=== PATIENT | male | born 1940 | race Caucasian/White ===

== ENCOUNTER → 2024-03-28 07:17 | Outpatient (REF) | payer MEDICARE, SELFPAY ==
[2024-03-28 11:09] LABS: ALT (SGPT) 20 U/L (0-50); AST (SGOT) 23 U/L (17-59); Albumin 4.2 g/dl (3.5-5.0); Alkaline Phosphatase 87 U/L (38-126); Blood Urea Nitrogen 28 mg/dl (9-20); Calcium 9.6 mg/dl (8.4-10.2); Carbon Dioxide 24 mmol/L (22-30); Chloride 105 mmol/L (98-107); Glucose 122 mg/dl (70-99); HDL Cholesterol 47 mg/dl; LDL Cholesterol, Calculated 91 mg/dl; Potassium 4.8 mmol/L (3.5-5.1); Sodium 138 mmol/L (135-145); Total Bilirubin 0.6 mg/dl (0.2-1.3); Total Cholesterol 165 mg/dl (50-199); Total Protein 6.6 g/dl (6.3-8.2); Triglyceride 135 mg/dl (10-149); Very Low Density Lipoprotein 27 mg/dl (0-30); eGFR 46.48
== END ==
LOC: REG 07:17
PROVIDERS: ATTENDING PHYSICIAN Internal Medicine Cardiovascular Disease; FAMILY PHYSICIAN Internal Medicine
DX: E78.5 Hyperlipidemia, unspecified (principal)
CPT/HCPCS: 36415; 80053; 80061

== ENCOUNTER → 2024-08-01 09:53 | Outpatient (REF) | payer MEDICARE, SELFPAY ==
[2024-08-01 11:17] LABS: % Basophils 0.3 % (0-2); % Eosinophils 4.4 % (0-6); % Immature Granulocytes 0.3 % (0-0.5); % Lymphocytes 22.7 % (20.5-51.1); % Monocytes 9.2 % (1.7-9.3); % Neutrophils 63.1 % (42.2-75.2); Absolute Eosinophils 0.4 10^3/uL (0-0.7); Absolute Lymphocytes 2.2 10^3/uL (1.2-3.4); Absolute Monocytes 0.9 10^3/uL (0.1-0.6); Absolute Neutrophils 6.1 10^3/uL (1.4-6.5); Hematocrit 44.6 % (39.0-52.0); Hemoglobin 15.3 g/dL (13.0-18.0); Mean Corp Hgb Conc. 34.3 g/dL (33.0-37.0); Mean Corpuscular Hgb 32.6 pg (27.0-31.0); Mean Corpuscular Volume 94.9 fL (80.0-94.0); Mean Platelet Volume 10.5 fL (7.4-10.4); Nucleated Red Blood Cells % 0 % (-); Platelet Count 199 10^3/uL (130-400); Red Cell Dist. Width 13.3 % (11.5-14.5); White Blood Cell Count 9.7 10^3/uL (4.8-10.8)
== END ==
LOC: REG 09:53
PROVIDERS: ATTENDING PHYSICIAN Nurse Practitioner Family; FAMILY PHYSICIAN Internal Medicine
DX: Z01.818 Encounter for other preprocedural examination (principal)
CPT/HCPCS: 36415; 85025

== ENCOUNTER → 2025-02-05 06:32 | Outpatient (REF) | payer MEDICARE, SELFPAY | LOC: RAD 06:32 | PROVIDERS: ATTENDING PHYSICIAN Student in an Organized Health Care Education/Training Program; FAMILY PHYSICIAN Internal Medicine | DX: I73.9 Peripheral vascular disease, unspecified (principal) | CPT/HCPCS: 93922; 93925 ==

== ENCOUNTER → 2025-03-20 07:33 | Outpatient (REF) | payer MEDICARE, SELFPAY | LOC: HWRCS 07:33 | PROVIDERS: ATTENDING PHYSICIAN Student in an Organized Health Care Education/Training Program; FAMILY PHYSICIAN Internal Medicine | DX: R06.02 Shortness of breath (principal) | CPT/HCPCS: 93306 ==

== ENCOUNTER → 2025-03-22 06:40 | Outpatient (REF) | payer MEDICARE, SELFPAY | LOC: RCS 06:40 | PROVIDERS: ATTENDING PHYSICIAN Student in an Organized Health Care Education/Training Program; FAMILY PHYSICIAN Internal Medicine | DX: R06.02 Shortness of breath (principal) | CPT/HCPCS: 78452; 93017; A9500 ==

== ENCOUNTER → 2025-04-11 07:22 | Outpatient (REF) | payer MEDICARE, SELFPAY ==
[2025-04-11 09:10] LABS: ALT (SGPT) 22 U/L (0-50); AST (SGOT) 23 U/L (17-59); Albumin 4.5 g/dl (3.5-5.0); Alkaline Phosphatase 76 U/L (38-126); Blood Urea Nitrogen 38 mg/dl (9-20); Calcium 9.8 mg/dl (8.4-10.2); Carbon Dioxide 27 mmol/L (22-30); Chloride 105 mmol/L (98-107); Glucose 111 mg/dl (70-99); HDL Cholesterol 45 mg/dl; LDL Cholesterol, Calculated 56 mg/dl; Potassium 4.9 mmol/L (3.5-5.1); Sodium 140 mmol/L (135-145); Total Protein 7.1 g/dl (6.3-8.2); Very Low Density Lipoprotein 25 mg/dl (0-30); eGFR 42.75
== END ==
LOC: REG 07:22
PROVIDERS: ATTENDING PHYSICIAN Student in an Organized Health Care Education/Training Program; FAMILY PHYSICIAN Internal Medicine
DX: I25.810 Atherosclerosis of coronary artery bypass graft(s) without angina pectoris (principal)
CPT/HCPCS: 36415; 80053; 80061

== ENCOUNTER 2025-04-22 13:08 | Emergency (ER) | payer MEDICARE, SELFPAY ==
[2025-04-22 13:15] VITALS: BP 134/61
[2025-04-22 13:17] VITALS: BP 134/61
--- NOTE | 2025-04-22 13:59 | ED.GENMED ---
History of Present Illness
General
Chief Complaint: Back Pain
Source: patient
Exam Limitations: none
Time Seen by Provider: 04/22/25 13:46
History of Present Illness
History of Present Illness:
84-year-old male presents complaining of right back pain that radiates to the groin since about 5 days ago. He thinks he may have twisted his back golfing. He was seen by his family doctor and prescribed muscle relaxer and steroid without any
significant relief. No urinary symptoms. He denies nausea. No prior history of kidney stones. He denies bowel or bladder dysfunction or perianal anesthesia.
Phy Exam
Physical Exam
Physical Exam:
General: Well-appearing male nontoxic no acute distress
HEENT: Normocephalic atraumatic
Heart: Regular rate and rhythm
Musculoskeletal exam: Patient is tender over the right costovertebral angle and to the right lumbosacral junction
Extremities: No cyanosis
Skin is warm no
Course
Orders/Labs/Results
Orders:
Orders
04/22/25 13:58
CT Abd/pel Without Iv Or Oral Urgent
Comment:
Reason For Exam: right flankl and back pain
04/22/25 14:12
Urinalysis Reflex To Culture Urgent
Date Specimen was Collected: 04/22/25
Time Specimen was Collected: 14:06
Urine Microscopic Reflex Cult Urgent
Abnormal Lab Results
04/22/25
14:12
Urine Bacteria (Reflex) Few A
(Negative)
Urine Albumin (Reflex) 1+ A
(Neg - Trace)
Vital Signs
Initial and Last Documented VS:
Initial Vital Signs
Temp Pulse Resp BP Pulse Ox
97.7 F 91 16 134/61 98
04/22/25 13:15 04/22/25 13:15 04/22/25 13:15 04/22/25 13:15 04/22/25 13:15
Last Documented Vital Signs
Temp Pulse Resp BP Pulse Ox
97.7 F 91 16 134/61 98
04/22/25 13:15 04/22/25 13:15 04/22/25 13:15 04/22/25 13:17 04/22/25 14:01
MDM/Problems Addressed
Differential Diagnosis Includes:
Right back pain. Consider degenerative disc disease versus lumbar strain versus renal colic
CT pending
*Pulse Oximetry
SaO2: 98
Oxygen Mode of Delivery: Room air
Patient hypoxic: no
*Critical Care Note
Total Time (30-74mins, 75-104mins- exclusive of procedures): Not Applicable
Update Note
Update Note:
CT of the abdomen pelvis shows no acute intra-abdominal pathology but there is moderate degenerative changes throughout the lumbar spine. I suspect lower back pain radiating to the front is radicular knowing that there is no kidney stone or other
intra-abdominal process. Recommended gabapentin. Referred to Dr. Ortiz. Stable for discharge
ED Attending Note
-
Portions of this chart may have been created with voice recognition software.� Occasional wrong word or��sound alike� substitutions may have occurred due to the inherent limitations of voice recognition software.
Discharge Plan
Departure
Patient Disposition: Home (Routine Discharge)
Date of Disposition: 04/22/25
Time of Disposition: 16:42
Patient with high blood pressure during this ER visit?: No
Discharge Problem:
Back pain
Instructions: Radiculopathy (DC)
Prescriptions:
New
gabapentin 300 mg capsule
300 mg PO TID Qty: 20 0RF
No Action
cyanocobalamin (vitamin B-12) 1,000 MCG tablet
5,000 mcg PO DAILY
allopurinol 100 MG tablet
100 mg PO DAILY
tamsulosin 0.4 MG capsule
0.4 mg PO DAILY
cholecalciferol (vitamin D3) [Vitamin D3] 400 UNITS tablet
2,000 units PO DAILY
coenzyme Q10 50 MG tablet,chewable
400 mg PO DAILY
telmisartan 40 mg Tablet
40 mg PO QPM
finasteride 5 mg Tablet
5 mg PO DAILY
rosuvastatin 40 mg Tablet
40 mg PO QPM
vitamin E
1 tab PO DAILY
sulfamethoxazole-trimethoprim [Bactrim DS] 800-160 mg tablet
1 tab PO BID Qty: 10 0RF
Rx Instructions:
pt has rx at home
Referrals:
Adan Ortiz MD [Active, Anesthesiology]
Kel Dahl DO [Family Provider, Internal Medicine]
Activity Restrictions/Additional Instructions:
Use warm compresses to the back. Consider Lidoderm patches for additional relief. Add gabapentin. Follow-up with Dr. Ortiz. Return if worse otherwise
Interventions
Interventions:
*Risk Screen - Suicide Last Done: 04/22/25 13:17
*General Assessment Last Done: 04/22/25 15:30
*Neglect/Abuse Screening Last Done: 04/22/25 13:15
*ED- Fall Risk Assessment Last Done: 04/22/25 15:30
ED-Musculoskeletal Assessment Last Done: 04/22/25 13:38
Discharge Date and Time
Print Language: YAKUT
[2025-04-22 15:12] LABS: Urine Character Clear (Clear)
[2025-04-22 15:31] LABS: Urine Squamous Cell >30 /LPF (Few)
[2025-04-22 15:32] LABS: Urine Red Blood Cell 0-2 /HPF (0-2); Urine White Cell 0-2 /HPF (0-5)
== END 2025-04-22 16:47 | disposition home or self-care (01) ==
LOC: EMR 13:08
PROVIDERS: Physician Assistant; EMERGENCY PHYSICIAN Emergency Medicine; FAMILY PHYSICIAN Internal Medicine; REFERRING PHYSICIAN Student in an Organized Health Care Education/Training Program
DX: M54.50 Low back pain, unspecified (principal); M47.816 Spondylosis without myelopathy or radiculopathy, lumbar region
CPT/HCPCS: 99284; 74176; 81003; 81015

== ENCOUNTER → 2025-05-16 15:29 | Outpatient (REF) | payer MEDICARE, SELFPAY | LOC: MRI 3T 15:29 | PROVIDERS: ATTENDING PHYSICIAN Psychiatry & Neurology Neurology; FAMILY PHYSICIAN Internal Medicine | DX: M54.16 Radiculopathy, lumbar region (principal) | CPT/HCPCS: 72148 ==

== ENCOUNTER 2025-06-07 15:15 | Emergency (ER) | payer MEDICARE, SELFPAY ==
[2025-06-07 15:16] VITALS: BP 153/80
[2025-06-07 15:50] LABS: Hematocrit 41.4 % (39.0-52.0); Hemoglobin 15.0 g/dL (13.0-18.0); Mean Corp Hgb Conc. 36.2 g/dL (33.0-37.0); Mean Corpuscular Volume 91.4 fL (80.0-94.0); Nucleated Red Blood Cells % 0 % (-); Platelet Count 148 10^3/uL (130-400); Red Cell Dist. Width 13.2 % (11.5-14.5)
[2025-06-07 15:59] LABS: ALT (SGPT) 37 U/L (0-50); AST (SGOT) 38 U/L (17-59); Albumin 4.0 g/dl (3.5-5.0); Alkaline Phosphatase 73 U/L (38-126); Blood Urea Nitrogen 28 mg/dl (9-20); Calcium 8.7 mg/dl (8.4-10.2); Carbon Dioxide 19 mmol/L (22-30); Chloride 101 mmol/L (98-107); Glucose 195 mg/dl (70-99); Potassium 4.6 mmol/L (3.5-5.1); Sodium 128 mmol/L (135-145); Total Protein 7.0 g/dl (6.3-8.2); eGFR 42.75
[2025-06-07 16:16] LABS: COVID-19 Antigen Negative (Negative)
--- NOTE | 2025-06-07 17:29 | ED.GENMED ---
History of Present Illness
General
Chief Complaint: Weakness
Source: patient
Exam Limitations: none
Time Seen by Provider: 06/07/25 17:21
History of Present Illness
History of Present Illness:
84-year-old male presents with fatigue and lightheadedness. He recently returned from [facility]. He notes some shortness of breath. His is sick with similar symptoms. Patient notes fatigue myalgias and fever recently. No leg swelling. No
history of CHF. They did a home COVID test which was negative. He has been no vomiting. No other complaints
Phy Exam
Physical Exam
Physical Exam:
General: Well-appearing male no acute respiratory distress
HEENT normal cephalic atraumatic
Heart: Regular rate and rhythm
Lungs: Clear no wheeze
Abdomen is soft nontender
Extremities: No cyanosis or edema
Course
Orders/Labs/Results
Orders:
Orders
06/07/25 15:29
COVID-19 Antigen Urgent
Source: Nasal Swab
Complete Blood Count/With Diff Urgent
Comprehensive Metabolic Panel Urgent
Influenza A+B Rapid Molecular Urgent
MAREN Source: Nasal Swab
Specimen Description:
06/07/25 17:28
Electrocardiogram (*1) Urgent
Reason for Study: Shortness of Breath
CT Chest PE Study Urgent
Comment:
Reason For Exam: sob, fatigue, recent flight
EKG- Treatment ONCE
0.9% Sodium Chloride 1000 ml [Nss] 1,000 ml IV BOLUS
06/07/25 17:55
Troponin I Urgent
06/07/25 18:35
Urinalysis Reflex To Culture Urgent
Date Specimen was Collected: 06/07/25
Time Specimen was Collected: 18:03
Urine Microscopic Reflex Cult Urgent
06/07/25 20:45
Amoxicillin 875 mg/Clav 125 mg [Augmentin 875 mg/125 mg] 1 tablet PO NOW STA
Azithromycin [Zithromax] 500 mg PO NOW STA
Abnormal Lab Results
06/07/25 06/07/25
15:29 18:35
RBC 4.53 L 10^6/uL
(4.70-6.10)
MCH 33.1 H pg
(27.0-31.0)
MPV 11.0 H fL
(7.4-10.4)
Absolute Lymphs (auto) 1.1 L 10^3/uL
(1.2-3.4)
Absolute Monos (auto) 0.8 H 10^3/uL
(0.1-0.6)
Lymphocytes % 14.1 L %
(20.5-51.1)
Monocytes % 10.5 H %
(1.7-9.3)
Sodium 128 L mmol/L
(135-145)
Carbon Dioxide 19 L mmol/L
(22-30)
BUN 28 H mg/dl
(9-20)
Creatinine 1.6 H mg/dL
(0.7-1.3)
Glucose 195 H mg/dl
(70-99)
Total Bilirubin 1.4 H mg/dl
(0.2-1.3)
Ur Occult Blood Reflex 1+ A
(Negative)
Urine Albumin (Reflex) 2+ A
(Neg - Trace)
06/07/25 15:29
06/07/25 15:29
Vital Signs
Initial and Last Documented VS:
Initial Vital Signs
Temp Pulse Resp BP Pulse Ox
97.6 F 93 18 153/80 98
06/07/25 15:16 06/07/25 15:16 06/07/25 15:16 06/07/25 15:16 06/07/25 15:16
Last Documented Vital Signs
Temp Pulse Resp BP Pulse Ox
97.6 F 84 25 141/72 97
06/07/25 15:16 06/07/25 19:15 06/07/25 19:15 06/07/25 18:37 06/07/25 19:15
MDM/Problems Addressed
Differential Diagnosis Includes:
Patient with fatigue myalgias fever lightheadedness over the past several days with recent flight to [place]. COVID and flu test were negative. Considered volume depletion and dehydration. Sodium is 128. Creatinine is stable at 1.6. Given
lightheadedness and shortness of breath in the setting of a recent extended flight, will consider PE. Chest CT scan ordered. Fluids ordered.
*Pulse Oximetry
SaO2: 98
Oxygen Mode of Delivery: Room air
Patient hypoxic: no
*Critical Care Note
Total Time (30-74mins, 75-104mins- exclusive of procedures): Not Applicable
Update Note
Update Note:
CT negative for PE but does demonstrate mild pneumonitis at the base of the left lung. Given patient's clinical presentation of cough myalgias fatigue chills subjective fever we will treat this for community-acquired pneumonia. He is not hypoxic
labs look well otherwise he has been on his feet after fluids looks and feels much better. At this point no indication for admission but will cover with Augmentin and Zithromax. Return precautions were given advise follow-up with family doctor
next week
ED Attending Note
-
Portions of this chart may have been created with voice recognition software.� Occasional wrong word or��sound alike� substitutions may have occurred due to the inherent limitations of voice recognition software.
Discharge Plan
Departure
Patient Disposition: Home (Routine Discharge)
Date of Disposition: 06/07/25
Time of Disposition: 20:46
Patient with high blood pressure during this ER visit?: No
Discharge Problem:
Pneumonia
Instructions: Pneumonia
Prescriptions:
New
amoxicillin-pot clavulanate 875-125 mg tablet
1 tab PO BID Qty: 14 0RF
azithromycin [Zithromax Z-[place]] 250 mg tablet
250 mg PO DAILY Qty: 4 0RF
No Action
cyanocobalamin (vitamin B-12) 1,000 MCG tablet
5,000 mcg PO DAILY
allopurinol 100 MG tablet
100 mg PO DAILY
tamsulosin 0.4 MG capsule
0.4 mg PO DAILY
cholecalciferol (vitamin D3) [Vitamin D3] 400 UNITS tablet
2,000 units PO DAILY
coenzyme Q10 50 MG tablet,chewable
400 mg PO DAILY
telmisartan 40 mg Tablet
40 mg PO QPM
finasteride 5 mg Tablet
5 mg PO DAILY
rosuvastatin 40 mg Tablet
40 mg PO QPM
vitamin E
1 tab PO DAILY
sulfamethoxazole-trimethoprim [Bactrim DS] 800-160 mg tablet
1 tab PO BID Qty: 10 0RF
Rx Instructions:
pt has rx at home
gabapentin 300 mg capsule
300 mg PO TID Qty: 20 0RF
Referrals:
Kel Dahl DO [Family Provider, Internal Medicine]
Activity Restrictions/Additional Instructions:
Take antibiotics as directed. Stay hydrated. You may use Tylenol if needed for fever. Return here for persistent fever shortness of breath vomiting or other concerning findings otherwise follow-up with your doctor
Interventions
Interventions:
*Risk Screen - Suicide Last Done: 06/07/25 15:18
*General Assessment Last Done: 06/07/25 15:18
*Neglect/Abuse Screening Last Done: 06/07/25 15:18
*ED COVID-19 Vaccine History Last Done: 06/07/25 15:18
*ED Influenza Vaccine History Last Done: 06/07/25 15:18
ED- Cardiac Assessment Last Done: 06/07/25 17:47
ED- Neurological Assessment Last Done: 06/07/25 17:47
ED- Pulmonary Assessment Last Done: 10/17/25 17:47
Discharge Date and Time
Print Language: ROMANSH
[2025-06-07] MEDS: NSS 1000 IV (17:42)
[2025-06-07 17:47] VITALS: BMI 30.3
[2025-06-07 18:33] LABS: Troponin I 0.027 ng/ml
[2025-06-07 18:37] VITALS: BP 141/72
[2025-06-07 18:55] LABS: Urine Character Slightly Cloudy (Clear)
[2025-06-07 19:38] LABS: Urine Red Blood Cell 0-2 /HPF (0-2); Urine White Cell 0-2 /HPF (0-5)
[2025-06-07] MEDS: AUGMENTIN 875 MG/125 MG 1 TABLET PO (20:53)
[2025-06-07] MEDS: ZITHROMAX 500 MG PO (20:53)
[2025-06-07 21:06] VITALS: BP 145/89
== END 2025-06-07 21:08 | disposition home or self-care (01) ==
LOC: EMR 15:15
PROVIDERS: Physician Assistant; EMERGENCY PHYSICIAN Emergency Medicine; FAMILY PHYSICIAN Internal Medicine
DX: J18.9 Pneumonia, unspecified organism (principal)
CPT/HCPCS: 99284; 96360; 71275; 80053; 81003; 81015; 84484; 85025; 87502; 87811; 93005; 96374; Q9967

== ENCOUNTER 2025-08-19 10:40 | Emergency (ER) | payer MEDICARE, SELFPAY ==
[2025-08-19 10:44] VITALS: BP 149/81
--- NOTE | 2025-08-19 11:28 | ED.GENMED ---
History of Present Illness
<Damian Owen MD, Resident - Last Filed: 08/19/25 14:06>
General
Chief Complaint: Cough
Time Seen by Provider: 08/19/25 11:08
History of Present Illness
History of Present Illness:
84 yo M PMH CABG, HTN, HLD, CAD, bladder cancer p/w cough and congestion for 1 week duration. He is presenting because symptoms have not improved and he has upcoming travel to [place].
He endorses chest pain only during cough. he endorses rhinorrhea. clear sputum. denies dyspnea. denies myalgia.
He had a recent surgery (bone removal for managing sciatica pain) on 08/08 and reports that the symptoms began after the procedure.
he reports that robutussin has helped managing the symptoms.
he notes no history of heart failure
nkda
social hx unremarkable
Past History
<Damian Owen MD, Resident - Last Filed: 08/19/25 14:06>
Social History
Tobacco: Non-smoker
Alcohol: Occasional
Drug: None
Review of Systems
<Damian Owen MD, Resident - Last Filed: 08/19/25 14:06>
Review of Systems
Constitutional: Reports fever and chills
EENT: Reports runny nose
Respiratory: Reports cough
Cardiac: Reports no symptoms
ABD/GI: Reports no symptoms
: Reports no symptoms
Musculoskeletal: Reports no symptoms
Neurological: Reports headache (frontal sinuses area)
Phy Exam
<Damian Owen MD, Resident - Last Filed: 08/19/25 14:06>
Physical Exam
Physical Exam:
VS: 149/81; HR 90
General: no acute distress
CV: no murmurs on my exam
Pulm: decreased breath sounds on left side
GI: + bowel sounds, no tenderness to palpation
MSK: no lower extremity edema
Course
<Damian Owen MD, Resident - Last Filed: 08/19/25 14:06>
Orders/Labs/Results
Orders:
Orders
08/19/25 10:47
Electrocardiogram (*1) Urgent
Reason for Study: Chest Pain
EKG- Treatment ONCE
08/19/25 12:02
CR Chest - 2 Views Urgent
Comment:
Reason For Exam: cough
08/19/25 13:09
Amoxicillin 875 mg/Clav 125 mg [Augmentin 875 mg/125 mg] 1 tablet PO NOW STA
Azithromycin [Zithromax] 500 mg PO NOW STA
Vital Signs
Initial and Last Documented VS:
Initial Vital Signs
Temp Pulse Resp BP Pulse Ox
97.8 F 90 20 149/81 98
08/19/25 10:44 08/19/25 10:44 08/19/25 10:44 08/19/25 10:44 08/19/25 10:44
Last Documented Vital Signs
Temp Pulse Resp BP Pulse Ox
97.8 F 90 20 149/81 98
08/19/25 10:44 08/19/25 10:44 08/19/25 10:44 08/19/25 10:44 08/19/25 11:30
<Lon Light, DO - Last Filed: 08/19/25 13:19>
Orders/Labs/Results
Orders:
Orders
08/19/25 10:47
Electrocardiogram (*1) Urgent
Reason for Study: Chest Pain
EKG- Treatment ONCE
08/19/25 12:02
CR Chest - 2 Views Urgent
Comment:
Reason For Exam: cough
08/19/25 13:09
Amoxicillin 875 mg/Clav 125 mg [Augmentin 875 mg/125 mg] 1 tablet PO NOW STA
Azithromycin [Zithromax] 500 mg PO NOW STA
Vital Signs
Initial and Last Documented VS:
Initial Vital Signs
Temp Pulse Resp BP Pulse Ox
97.8 F 90 20 149/81 98
08/19/25 10:44 08/19/25 10:44 08/19/25 10:44 08/19/25 10:44 08/19/25 10:44
Last Documented Vital Signs
Temp Pulse Resp BP Pulse Ox
97.8 F 90 20 149/81 98
08/19/25 10:44 08/19/25 10:44 08/19/25 10:44 08/19/25 10:44 08/19/25 11:30
<Damian Owen MD, Resident - Last Filed: 08/19/25 14:06>
MDM/Problems Addressed
Differential Diagnosis Includes:
pneumonia, rhinitis, sinusitis, rhinosinusitis, acute bronchitis, PE
MDM/Problems Addressed:
84 yo M PMH CABG, HTN, HLD, bladder cancer, CAD p/w cough congestion for 1 week duration
headache in frontal sinuses
clear rhinorrhea, clear sputum
chest pain during cough is technically pleuritic
recent surgical procedure on 08/08, however, denies dyspnea, he is on room air saturating 98%. no tachycardic, not tachypneic.
covid antigen and flu antigen testing on Tuesday at PCP were both negative, which would be 5 days into onset of symptoms (began 1 week prior, around 08/12).
He was here in the ED ~1 month prior and diagnosed with CAP but did not realize that he had to fill a prescription.
Plan:
CXR - official read of bilateral opacities, however, on our review, possible focal consolidation c/w pneumonia in LLL that correlates with diminished breath sounds over left lung field.
EKG - sinus rhythm
This is possibly an untreated pneumonia from his previous ED visit
Augmentin 1x now
Azithromycin 500mg now
Will send script for
- augmentin 875-125 1 tablet bid 7 days
- azithromycin 250mg 4 days course
Patient aware that the prescriptions must be picked up.
<Damian Owen MD, Resident - Last Filed: 08/19/25 14:06>
*Pulse Oximetry
SaO2: 98
Oxygen Mode of Delivery: Room air
Patient hypoxic: no
*Critical Care Note
Total Time (30-74mins, 75-104mins- exclusive of procedures): Not Applicable
ED Attending Note
<Damian Owen MD, Resident - Last Filed: 08/19/25 14:06>
-
Portions of this chart may have been created with voice recognition software.� Occasional wrong word or��sound alike� substitutions may have occurred due to the inherent limitations of voice recognition software.
<Lon Light, - Last Filed: 08/19/25 13:19>
ED Attending Note
Patient seen and examined by attending physician: Yes
I performed a history and physical exam of patient and discussed management with resident, I reviewed resident's note and agree with documented findings and plan of care.: Yes
ED Attending Note:
I evaluated patient at bedside. The patient has rales on exam on the left side only. There is some questionable abnormality consistent with pneumonia/consolidation on the left side on the chest x-ray. We are replacing patient on antibiotics. Of
note, the patient just took antibiotics while in the emergency department last month but never had the prescription filled.
Discharge Plan
Departure
Patient Disposition: Home (Routine Discharge)
Date of Disposition: 08/19/25
Time of Disposition: 14:05
Patient with high blood pressure during this ER visit?: Yes
Condition: Fair
Discharge Problem:
Pneumonia
Prescriptions:
New
amoxicillin-pot clavulanate 875-125 mg tablet
1 tab PO BID Qty: 14 0RF
azithromycin 250 mg tablet
250 mg PO DAILY Qty: 4 0RF
No Action
cyanocobalamin (vitamin B-12) 1,000 MCG tablet
5,000 mcg PO DAILY
allopurinol 100 MG tablet
100 mg PO DAILY
tamsulosin 0.4 MG capsule
0.4 mg PO DAILY
cholecalciferol (vitamin D3) [Vitamin D3] 400 UNITS tablet
2,000 units PO DAILY
coenzyme Q10 50 MG tablet,chewable
400 mg PO DAILY
telmisartan 40 mg Tablet
40 mg PO QPM
finasteride 5 mg Tablet
5 mg PO DAILY
rosuvastatin 40 mg Tablet
40 mg PO QPM
vitamin E
1 tab PO DAILY
sulfamethoxazole-trimethoprim [Bactrim DS] 800-160 mg tablet
1 tab PO BID Qty: 10 0RF
Rx Instructions:
pt has rx at home
gabapentin 300 mg capsule
300 mg PO TID Qty: 20 0RF
amoxicillin-pot clavulanate 875-125 mg tablet
1 tab PO BID Qty: 14 0RF
azithromycin [Zithromax Z-[place]] 250 mg tablet
250 mg PO DAILY Qty: 4 0RF
Referrals:
Kel Dahl DO [Family Provider, Internal Medicine]
Activity Restrictions/Additional Instructions:
You presented with cough/congestion. The most likely explanation is that this is continuation of your symptoms that brought you to the emergency room at your last visit.
You will complete antibiotics upon discharge, specifically augmentin 875-125mg 1 tablet twice a day for 7 days and azithromycin 250mg once a day for 4 days.
You should try to follow-up with your primary care doctor in approximately 1-2 weeks.
If you experience worsening symptoms, please call your doctor or seek care at the nearest ER.
Interventions
Interventions:
*General Assessment Last Done: 08/19/25 10:44
*Neglect/Abuse Screening Last Done: 08/19/25 10:44
Discharge Date and Time
Print Language: TRINIDADIAN
[2025-08-19] MEDS: AUGMENTIN 875 MG/125 MG 1 TABLET PO (13:21)
[2025-08-19] MEDS: ZITHROMAX 500 MG PO (13:21)
== END 2025-08-19 14:11 | disposition home or self-care (01) ==
LOC: EMR 10:40
PROVIDERS: EMERGENCY PHYSICIAN Emergency Medicine; FAMILY PHYSICIAN Internal Medicine
DX: J18.9 Pneumonia, unspecified organism (principal); R51.9 Headache, unspecified; I10 Essential (primary) hypertension; E78.5 Hyperlipidemia, unspecified; I25.10 Atherosclerotic heart disease of native coronary artery without angina pectoris; Z98.890 Other specified postprocedural states
CPT/HCPCS: 99283; 71046; 93005